=== PATIENT | male | born 1970 | race Asian ===

== ENCOUNTER 2017-10-28 20:33 | Emergency (ER) | payer OTHER ==
[~2017-10-28] VITALS: Ht 177.8 cm; Wt 111.8 kg
[2017-10-28 20:44] VITALS: Ht 177.8 cm; Wt 111.8 kg
[2017-10-28 21:34] LABS: BASOPHIL % 0.3 % (0-2); PLATELET COUNT 222 x10^3mcL (130-400); RED CELL DISTRIBUTION WIDTH 12.6 % (11.5-14.5)
[2017-10-28 21:46] LABS: CALCIUM 9.1 mg/dL (8.5-10.1); CARBON DIOXIDE 29.4 mmol/L (21-32); CHLORIDE SERUM 101 mmol/L (98-107); GFR1 > 60 mL/min; GLUCOSE SERUM 205 mg/dL (74-106); SODIUM SERUM 139 mmol/L (136-145)
[2017-10-28 21:53] LABS: ALKALINE PHOSPHATASE 76 U/L (46-116); ALT/SGPT 73 U/L (16-63); AST/SGOT 32 U/L (15-37); BILIRUBIN TOTAL 0.28 mg/dL (0.20-1.00); LIPASE 260 IU/L (73-393); TOTAL PROTEIN, SERUM 7.9 g/dL (6.4-8.2)
[2017-10-29 00:02] VITALS: BP 132/82
== END 2017-10-29 00:02 | disposition home or self-care (01) ==
LOC: ED 20:33
PROVIDERS: Emergency Medicine
DX: R07.89 Other chest pain (principal); J45.909 Unspecified asthma, uncomplicated; E11.9 Type 2 diabetes mellitus without complications; M54.6 Pain in thoracic spine; Z88.5 Allergy status to narcotic agent; Z88.8 Allergy status to other drugs, medicaments and biological substances
CPT/HCPCS: 36415; 85378; J1885